=== PATIENT | female | born 1990 | race Hispanic/Latino ===

== ENCOUNTER 2023-02-08 04:14 | Emergency (ER) | payer OTHER ==
[~2023-02-08] VITALS: Ht 172.7 cm; Wt 136.1 kg
[2023-02-08 04:18] VITALS: BP 129/87; PULSE 110; RESP 18
== END 2023-02-08 06:10 | disposition home or self-care (01) ==
LOC: EDH 04:14
DX: S62.91XA Unspecified fracture of right hand, initial encounter for closed fracture (principal); I10 Essential (primary) hypertension; X58.XXXA Exposure to other specified factors, initial encounter; Y93.9 Activity, unspecified; Y92.89 Other specified places as the place of occurrence of the external cause; Y99.8 Other external cause status
CPT/HCPCS: 73060; 73090; 73100; 73130